=== PATIENT | female | born 1975 | race African-American/Black ===

== ENCOUNTER 2017-05-26 15:34 | Emergency (ER) | payer MEDICAID ==
[~2017-05-26] VITALS: Ht 162.6 cm; Wt 70.0 kg
[2017-05-26 20:49] LABS: CLARITY URINE CLEAR (CLEAR); COLOR URINE YELLOW (YELLOW); GLUCOSE URINE NEGATIVE (NEGATIVE); KETONES URINE NEGATIVE (NEGATIVE); LEUKOCYTE ESTERASE URINE 3+ (NEGATIVE); NITRITE URINE NEGATIVE (NEGATIVE); OCCULT BLOOD URINE TRACE (NEGATIVE); PH URINE 5.5 (4.5-8.0); PROTEIN URINE NEGATIVE (NEGATIVE); SPECIFIC GRAVITY URINE 1.006 (1.005-1.030); UROBILINOGEN URINE 0.2 E.U./dL (0.2-1.0)
[2017-05-26 21:02] LABS: *AMPHETAMINES SCREEN URINE NEGATIVE (NEGATIVE); *BARBITURATES SCREEN URINE NEGATIVE (NEGATIVE); *BENZODIAZEPINES SCREEN URINE NEGATIVE (NEGATIVE); CANNABINOID URINE SCREEN NEGATIVE (NEGATIVE); METHADONE URINE SCREEN NEGATIVE (NEGATIVE); OPIATES URINE SCREEN NEGATIVE (NEGATIVE); PHENCYCLIDINE URINE SCREEN NEGATIVE (NEGATIVE)
[2017-05-26 21:05] LABS: *COCAINE SCREEN URINE PRESUMTIVE POSITIVE (NEGATIVE)
[2017-05-26 21:21] LABS: BASOPHILS % 0.7 % (0.0-2.0); EOSINOPHILS % 2.3 % (0.0-5.0); HEMATOCRIT. 35.9 % (36.0-48.0); HEMOGLOBIN. 11.3 g/dL (12.0-16.0); LYMPHOCYTES % 44.8 % (20.0-50.0); MEAN CORPUSCULAR HEMOGLOBIN 23.9 pg (28.0-32.0); MEAN CORPUSCULAR VOLUME 75.6 fL (81.0-99.0); MEAN PLATELET VOLUME 8.6 fl (7.4-10.4); MONOCYTES % 8.7 % (2.0-8.0); NEUTROPHILS % 43.5 % (40.0-76.0); PLATELET 256 x1000/uL (130-400); RED BLOOD CELL COUNT 4.75 mill/uL (4.2-5.4); RED CELL DISTRIBUTION WIDTH 17.6 % (11.6-14.6)
[2017-05-26 21:26] LABS: CHLORIDE 107 mEq/L (98-107)
[2017-05-26 21:33] LABS: CARBON DIOXIDE 25 mEq/L (21-32); ETHANOL BLOOD < 10 mg/dL
[2017-05-27] MEDS ORDERED: NITROFURANTOIN 100MG M/M CAPSULE PO SCH (09:00)
[2017-05-27 16:17] VITALS: BP 105/73
[2017-05-27] MEDS ORDERED: KETOROLAC 60MG/2ML VIAL IM ONE (16:30)
== END 2017-05-27 17:29 | disposition home or self-care (01) ==
LOC: ER 16:14
DX: F29 Unspecified psychosis not due to a substance or known physiological condition (principal)
CPT/HCPCS: 36415; 80053; 80305; 80307; 80329; 81001; 81025; 85025; 96372; 99284; G0482; J1885; Z7610

== ENCOUNTER 2018-01-08 23:41 | Emergency (ER) | payer MEDICAID ==
[~2018-01-08] VITALS: Ht 172.7 cm; Wt 73.0 kg
[2018-01-08 23:42] VITALS: BP 134/89
[2018-01-09 03:35] LABS: CLARITY URINE CLEAR (CLEAR); COLOR URINE YELLOW (YELLOW); KETONES URINE TRACE (NEGATIVE); LEUKOCYTE ESTERASE URINE 1+ (NEGATIVE); NITRITE URINE POSITIVE (NEGATIVE); OCCULT BLOOD URINE NEGATIVE (NEGATIVE); PH URINE 6.5 (4.5-8.0); PROTEIN URINE NEGATIVE (NEGATIVE); SPECIFIC GRAVITY URINE 1.037 (1.005-1.030)
[2018-01-09 04:11] LABS: *BENZODIAZEPINES SCREEN URINE NEGATIVE (NEGATIVE); METHADONE URINE SCREEN NEGATIVE (NEGATIVE); OPIATES URINE SCREEN NEGATIVE (NEGATIVE)
[2018-01-09 04:12] LABS: *AMPHETAMINES SCREEN URINE NEGATIVE (NEGATIVE); *BARBITURATES SCREEN URINE NEGATIVE (NEGATIVE); PHENCYCLIDINE URINE SCREEN NEGATIVE (NEGATIVE)
[2018-01-09 04:17] LABS: *COCAINE SCREEN URINE PRESUMTIVE POSITIVE (NEGATIVE); CANNABINOID URINE SCREEN PRESUMTIVE POSITIVE (NEGATIVE)
== END 2018-01-09 05:25 | disposition home or self-care (01) ==
LOC: ER 23:41
DX: M25.561 Pain in right knee (principal); G89.29 Other chronic pain; V89.2XXA Person injured in unspecified motor-vehicle accident, traffic, initial encounter; Y92.410 Unspecified street and highway as the place of occurrence of the external cause
CPT/HCPCS: 71045; 72170; 73562; 80305; 81003; 81025; 99285

== ENCOUNTER 2018-12-28 10:51 | Emergency (ER) | payer MEDICAID ==
[~2018-12-28] VITALS: Ht 170.2 cm; Wt 83.0 kg
[2018-12-28 12:09] LABS: EOSINOPHILS % 0.6 % (0.0-5.0); HEMATOCRIT. 30.8 % (36.0-48.0); HEMOGLOBIN. 9.8 g/dL (12.0-16.0); LYMPHOCYTES % 26.2 % (20.0-50.0); MEAN CORPUSCULAR HEMOGLOBIN 22.6 pg (28.0-32.0); MEAN CORPUSCULAR VOLUME 70.9 fL (81.0-99.0); MONOCYTES % 6.2 % (2.0-8.0); PLATELET 355 x1000/uL (130-400); RED BLOOD CELL COUNT 4.35 mill/uL (4.2-5.4); RED CELL DISTRIBUTION WIDTH 18.1 % (11.6-14.6)
[2018-12-28] MEDS ORDERED: LORAZEPAM 1MG TABLET PO ONE (12:15)
[2018-12-28] MEDS ORDERED: IBUPROFEN 600MG TABLET PO ONE (12:15)
[2018-12-28 12:16] LABS: CHLORIDE 110 mEq/L (98-107)
[2018-12-28 12:19] LABS: ETHANOL BLOOD 52 mg/dL
[2018-12-28] MEDS ORDERED: DIPHENHYDRAMINE 50MG/ML VIAL IM STA (12:43)
[2018-12-28] MEDS ORDERED: ZIPRASIDONE MESYLATE 20MG/VIAL IM ONE (12:45)
[2018-12-28] MEDS ORDERED: LORAZEPAM 2MG/ML CPJ IM ONE (12:45)
[2018-12-28 13:07] LABS: CLARITY URINE CLOUDY (CLEAR); COLOR URINE YELLOW (YELLOW); KETONES URINE NEGATIVE (NEGATIVE); LEUKOCYTE ESTERASE URINE TRACE (NEGATIVE); NITRITE URINE NEGATIVE (NEGATIVE); OCCULT BLOOD URINE NEGATIVE (NEGATIVE); PROTEIN URINE TRACE (NEGATIVE); SPECIFIC GRAVITY URINE 1.022 (1.005-1.030)
[2018-12-28 13:48] LABS: *AMPHETAMINES SCREEN URINE NEGATIVE (NEGATIVE); *BARBITURATES SCREEN URINE NEGATIVE (NEGATIVE); *BENZODIAZEPINES SCREEN URINE NEGATIVE (NEGATIVE); METHADONE URINE SCREEN NEGATIVE (NEGATIVE); OPIATES URINE SCREEN NEGATIVE (NEGATIVE)
[2018-12-28 13:49] LABS: *COCAINE SCREEN URINE PRESUMTIVE POSITIVE (NEGATIVE); CANNABINOID URINE SCREEN PRESUMTIVE POSITIVE (NEGATIVE); PHENCYCLIDINE URINE SCREEN NEGATIVE (NEGATIVE)
[2018-12-29 08:51] VITALS: BP 122/84
== END 2018-12-29 10:31 | disposition home or self-care (01) ==
LOC: ER 10:51
DX: F23 Brief psychotic disorder (principal); F14.10 Cocaine abuse, uncomplicated; F12.10 Cannabis abuse, uncomplicated; M79.645 Pain in left finger(s); F17.210 Nicotine dependence, cigarettes, uncomplicated; Z59.0 Homelessness
CPT/HCPCS: 36415; 73130; 80048; 80305; 80307; 80320; 80329; 81003; 81025; 85025; 96372; 99284; J1200; J2060; J3486; G0480

== ENCOUNTER 2019-11-18 02:25 | Emergency (ER) | payer MEDICAID ==
[~2019-11-18] VITALS: Ht 167.6 cm; Wt 69.0 kg
[2019-11-18 12:45] VITALS: BP 124/86
== END 2019-11-18 13:02 | disposition home or self-care (01) ==
LOC: ER 02:25 → EDUNIT# 02:25 → EDBD 02:25 → ER 13:02
DX: S09.8XXA Other specified injuries of head, initial encounter (principal); F10.129 Alcohol abuse with intoxication, unspecified; Y90.9 Presence of alcohol in blood, level not specified; Y00.XXXA Assault by blunt object, initial encounter; Y93.89 Activity, other specified; Y92.488 Other paved roadways as the place of occurrence of the external cause
CPT/HCPCS: 99285

== ENCOUNTER 2020-02-26 01:42 | Emergency (ER) | payer MEDICAID ==
[~2020-02-26] VITALS: Ht 175.3 cm; Wt 73.0 kg
[2020-02-26] MEDS ORDERED: LIDOCAINE 1%/EPI 1:100,000 10 ML VIAL IJ ONE (02:45)
[2020-02-26] MEDS ORDERED: LIDOCAINE HCL/EPINEPHRINE 1%-EPI 1:100,000 20 ML VIAL INFIL SCH (03:00)
[2020-02-26 05:00] VITALS: BP 125/78
== END 2020-02-26 05:02 | disposition home or self-care (01) ==
LOC: ER 01:42
DX: S21.211A Laceration without foreign body of right back wall of thorax without penetration into thoracic cavity, initial encounter (principal); X99.0XXA Assault by sharp glass, initial encounter; Y93.01 Activity, walking, marching and hiking; Y92.480 Sidewalk as the place of occurrence of the external cause
CPT/HCPCS: 12002; 72070; 99283; J3490